=== PATIENT | female | born 1980 | race Caucasian/White ===

== ENCOUNTER → 2017-05-03 | Emergency (ER) | payer SELFPAY ==
[~2017-05-03] VITALS: Ht 165.1 cm; Wt 74.8 kg
[2017-05-03 20:24] VITALS: BP 138/84
--- NOTE | 2017-05-03 20:28 | ED Psychosocial ---
General Chief Complaint: Psych/Social Disorder Stated Complaint: HEARING VOICES Source: patient Exam Limitations: no limitations History of Present Illness Time seen by provider: 20:25 Initial Comments Brought to the emergency room by her father with reports of something in her ears. She is uncertain what it is but she is hearing voices all the time. She has an research asst appointment for this. She states she's been hearing this for 2 years Timing/Duration: constant Severity: moderate Constitutional: see HPI EENTM: see HPI Respiratory: no symptoms reported Cardiovascular: no symptoms reported Genitourinary: no symptoms reported Musculoskeletal: no symptoms reported Skin: no symptoms reported Psychiatric/Neurological: See HPI (data follow-up) Past Ndqlmxg-Bpaeik-Hmplit Hx Patient Social History Recent Foreign Travel: No Contact w/Someone Who Travel: No Physical Exam Vital Signs Capillary Refill : General Appearance: WD/WN, no apparent distress, other (patient insists that I look in her ears to see what it is that she hears whispering all the time. She states that she constantly hears voices and insists that there is something in one of her years that she is hearing. Her external ear canals are clean without foreign bodies and the tympanic membranes are normal in appearance well. I advised her we should check some lab work and look for other causes of hallucinations she insists this is not a hallucination there is something in her ear. She states she will leave. Father is with her and apologized for her behavior.) HEENT: PERRL/EOMI, normal ENT inspection Neck: non-tender, full range of motion Respiratory: no respiratory distress, no accessory muscle use Gastrointestinal: normal bowel sounds, non tender, soft Neurologic/Psychiatric: alert, normal mood/affect, oriented x 3 Appearance/Memory: disheveled, impaired insight Behavior/Eye Contact: increased rate of speech Thoughts/Hallucinations: auditory hallucinations, delusions, flight of ideas Skin: normal color Departure Impression Impression: Primary Impression: Auditory hallucination Disposition: 07 AGAINST MEDICAL ADVICE Condition: Against Medical Advice Departure-Patient Inst. Decision time for Depature: 20:27 Referrals: NO,LOCAL PHYSICIAN (PCP/Family) Primary Care Physician SALLY FOREMAN APRN May 03, 2017 20:28
== END | disposition left against medical advice (07) ==
LOC: ER 19:15 → EDBD 19:15
DX: R44.0 Auditory hallucinations (principal)
CPT/HCPCS: 99283